=== PATIENT | female | born 1955 | race Two or more races ===

== ENCOUNTER 2018-05-18 18:04 | Emergency (ER) | payer MEDICAID ==
[~2018-05-18] VITALS: Ht 165.1 cm; Wt 76.3 kg
[~2018-05-18 18:04] MED LIST: ACET-812 PO; ACET1TAB12 PO; CYCL-1 PO; DIAZ2TAB PO; OMEP20CA10 PO; OXYC-145 PO; PREG50CA PO; [UNRECOGNIZED DRUG - CODE] TP
[2018-05-18 19:13] LABS: BASOPHILS # (AUTO) 0.1 X10'3 (0-0.2); BASOPHILS % (AUTO) 0.6 % (0-1); EOSINOPHILS # (AUTO) 0.3 X10'3 (0-0.9); HEMATOCRIT 40.6 % (35.0-45.0); HEMOGLOBIN 13.8 g/dl (12.0-16.0); LYMPHOCYTES # (AUTO) 2.1 X10'3 (1.1-4.8); LYMPHOCYTES % (AUTO) 23.5 % (21-51); MEAN CORPUSCULAR HEMOGLOBIN 30.6 PG (27.0-31.0); MEAN CORPUSCULAR VOLUME 89.9 FL (78-98); MEAN PLATELET VOLUME 7.9 FL (7.4-10.4); MONOCYTES # (AUTO) 0.6 X10'3 (0-0.9); MONOCYTES % (AUTO) 7.4 % (2-12); NEUTROPHILS # (AUTO) 5.7 X10'3 (1.8-7.7); NEUTROPHILS % (AUTO) 65.5 % (42-75); PLATELET COUNT 348 X10'3 (140-440); RED BLOOD COUNT 4.52 X10'6 (4.20-5.60); RED CELL DISTRIBUTION WIDTH 12.6 % (11.5-14.5); WHITE BLOOD COUNT 8.8 X10'3 (4.5-11.0)
[2018-05-18 19:27] LABS: ALANINE AMINOTRANSFERASE 52 U/L (12-78); ALBUMIN 3.5 G/DL (3.4-5.0); ALBUMIN/GLOBULIN RATIO 0.8 (1.1-1.5); ALKALINE PHOSPHATASE 120 IU/L (46-116); ANION GAP 10 (8-16); ASPARTATE AMINO TRANSFERASE 31 U/L (10-37); BILIRUBIN,TOTAL 0.4 MG/DL (0.1-1.0); BLOOD UREA NITROGEN 13 MG/DL (7-18); BUN/CREATININE RATIO 20.6 (6.6-38.0); CHLORIDE 103 MMOL/L (99-107); CREATININE 0.63 MG/DL (0.40-0.90); GLUCOSE 119 MG/DL (70-104); POTASSIUM 3.6 MMOL/L (3.5-5.1); SODIUM 140 MMOL/L (135-145); TOTAL CARBON DIOXIDE 26.8 MMOL/L (24-32); TOTAL PROTEIN 7.8 G/DL (6.4-8.2); eGFR > 90 ML/MIN
[2018-05-18 20:20] LABS: CLARITY,URINE CLEAR (Clear); COLOR,URINE STRAW (Yellow); GLUCOSE, URINE NEGATIVE (Neg); KETONES,URINE NEGATIVE (Neg); LEUKOCYTE ESTERASE ,URINE NEGATIVE (Neg); NITRITES, URINE NEGATIVE (Neg); OCCULT BLOOD,URINE SMALL (Neg); PROTEIN,URINE NEGATIVE (Neg); UROBILINOGEN,URINE 0.2 E.U/dL (0.2-1.0)
[2018-05-18 20:22] LABS: UA COLLECTION TYPE CLN CATCH MIDSTREAM
[2018-05-18 20:39] LABS: MUCUS STRANDS FEW /LPF (Neg); SQUAMOUS EPITHELIAL CELL,UR FEW /LPF (FEW)
[2018-05-18 20:40] LABS: BACTERIA,URINE NONE SEEN /HPF (Neg); RBC,URINE 0-2 /HPF (0-2); WBC,URINE NONE SEEN /HPF (0-4)
[2018-05-18 21:44] VITALS: BP 133/79
== END 2018-05-18 21:48 | disposition home or self-care (01) ==
LOC: ER 18:04
DX: N93.9 Abnormal uterine and vaginal bleeding, unspecified (principal); Z90.49 Acquired absence of other specified parts of digestive tract; Z56.0 Unemployment, unspecified; Z88.6 Allergy status to analgesic agent
CPT/HCPCS: 36415; 74176; 80053; 81001; 85025; 99285

== ENCOUNTER 2018-09-23 17:35 | Emergency (ER) | payer MEDICAID ==
[~2018-09-23] VITALS: Ht 154.9 cm; Wt 81.8 kg
[2018-09-23 18:14] VITALS: BP 135/47
[2018-09-23] MEDS ORDERED: HYDROcodone/acetaminophen 10/325mg tab PO ONE (18:20)
[2018-09-23] MEDS ORDERED: HYDR-4353 PO (19:38)
== END 2018-09-23 19:49 | disposition home or self-care (01) ==
LOC: ER 17:36
DX: S92.515A Nondisplaced fracture of proximal phalanx of left lesser toe(s), initial encounter for closed fracture (principal); Z85.3 Personal history of malignant neoplasm of breast; Z90.49 Acquired absence of other specified parts of digestive tract; Z98.890 Other specified postprocedural states; Z56.0 Unemployment, unspecified; Z88.5 Allergy status to narcotic agent; Z79.899 Other long term (current) drug therapy; W22.8XXA Striking against or struck by other objects, initial encounter; Y93.01 Activity, walking, marching and hiking; Y92.89 Other specified places as the place of occurrence of the external cause; Y99.8 Other external cause status
CPT/HCPCS: 73630; 99283

== ENCOUNTER 2019-02-08 20:41 | Emergency (ER) | payer MEDICAID ==
[~2019-02-08] VITALS: Ht 152.4 cm; Wt 86.0 kg
[~2019-02-08 20:41] MED LIST changes: -ACET-812 PO; -ACET1TAB12 PO; -CYCL-1 PO; -DIAZ2TAB PO; +IBUP-2417 PO; +LEVO88TA2 PO; -OMEP20CA10 PO; -OXYC-145 PO; -PREG50CA PO; -[UNRECOGNIZED DRUG - CODE] TP
[2019-02-08 21:25] LABS: BASOPHILS % (AUTO) 0.5 % (0-1); EOSINOPHILS # (AUTO) 0.2 X10'3 (0-0.9); EOSINOPHILS % (AUTO) 2.2 % (0-6); HEMATOCRIT 37.8 % (35.0-45.0); HEMOGLOBIN 13.1 g/dl (12.0-16.0); LYMPHOCYTES # (AUTO) 2.8 X10'3 (1.1-4.8); LYMPHOCYTES % (AUTO) 34.4 % (21-51); MEAN CORPUSCULAR HEMOGLOBIN 31.7 PG (27.0-31.0); MEAN CORPUSCULAR HGB CONC 34.6 g/dL (33.0-36.5); MEAN CORPUSCULAR VOLUME 91.7 FL (78-98); MEAN PLATELET VOLUME 7.7 FL (7.4-10.4); MONOCYTES # (AUTO) 0.6 X10'3 (0-0.9); NEUTROPHILS # (AUTO) 4.6 X10'3 (1.8-7.7); NEUTROPHILS % (AUTO) 55.9 % (42-75); PLATELET COUNT 273 X10'3 (140-440); RED BLOOD COUNT 4.13 X10'6 (4.20-5.60); RED CELL DISTRIBUTION WIDTH 12.8 % (11.5-14.5); WHITE BLOOD COUNT 8.3 X10'3 (4.5-11.0)
[2019-02-08 21:38] LABS: ALANINE AMINOTRANSFERASE 50 U/L (12-78); ALBUMIN 3.5 G/DL (3.4-5.0); ALBUMIN/GLOBULIN RATIO 0.9 (1.1-1.5); ALKALINE PHOSPHATASE 112 IU/L (46-116); ANION GAP 11 (8-16); ASPARTATE AMINO TRANSFERASE 24 U/L (10-37); BILIRUBIN,TOTAL 0.3 MG/DL (0.1-1.0); BLOOD UREA NITROGEN 15 MG/DL (7-18); BUN/CREATININE RATIO 18.1 (6.6-38.0); CALCIUM 8.6 MG/DL (8.5-10.1); CHLORIDE 108 MMOL/L (99-107); CREATININE 0.83 MG/DL (0.40-0.90); GLUCOSE 128 MG/DL (70-104); POTASSIUM 3.7 MMOL/L (3.5-5.1); SODIUM 143 MMOL/L (135-145); TOTAL CARBON DIOXIDE 24.3 MMOL/L (24-32); TOTAL PROTEIN 7.6 G/DL (6.4-8.2); eGFR 69 ML/MIN
[2019-02-08 21:41] LABS: PARTIAL THROMBOPLASTIN TIME 29 SECONDS (22-32)
[2019-02-08 22:39] LABS: CLARITY,URINE CLEAR (Clear); COLOR,URINE YELLOW (Yellow); GLUCOSE, URINE NEGATIVE (Neg); KETONES,URINE NEGATIVE (Neg); LEUKOCYTE ESTERASE ,URINE NEGATIVE (Neg); NITRITES, URINE NEGATIVE (Neg); OCCULT BLOOD,URINE TRACE-INTACT (Neg); PH,URINE 6.5 (4.8-8.0); PROTEIN,URINE NEGATIVE (Neg); UROBILINOGEN,URINE 0.2 E.U/dL (0.2-1.0)
[2019-02-08 22:40] LABS: UA COLLECTION TYPE CLN CATCH MIDSTREAM
[2019-02-08 22:45] LABS: BACTERIA,URINE FEW /HPF (Neg); MUCUS STRANDS NONE SEEN /LPF (Neg); RBC,URINE 0-2 /HPF (0-2); SQUAMOUS EPITHELIAL CELL,UR FEW /LPF (FEW); WBC,URINE NONE SEEN /HPF (0-4)
[2019-02-08 23:37] VITALS: BP 101/58
== END 2019-02-08 23:39 | disposition home or self-care (01) ==
LOC: ER 20:42
DX: R42 Dizziness and giddiness (principal); T37.8X5A Adverse effect of other specified systemic anti-infectives and antiparasitics, initial encounter; R10.12 Left upper quadrant pain; K11.7 Disturbances of salivary secretion; R07.89 Other chest pain; R10.13 Epigastric pain; K21.9 Gastro-esophageal reflux disease without esophagitis; Z85.3 Personal history of malignant neoplasm of breast; Z90.49 Acquired absence of other specified parts of digestive tract; Z98.890 Other specified postprocedural states; Z56.0 Unemployment, unspecified; Z88.5 Allergy status to narcotic agent; Z88.8 Allergy status to other drugs, medicaments and biological substances; Z79.899 Other long term (current) drug therapy; Y92.89 Other specified places as the place of occurrence of the external cause
CPT/HCPCS: 36415; 71045; 80053; 81001; 84484; 85025; 85610; 85730; 93005; 99284

== ENCOUNTER 2019-04-29 18:23 | Emergency (ER) | payer MEDICAID ==
[~2019-04-29] VITALS: Ht 152.4 cm; Wt 82.9 kg
--- NOTE | 2019-04-29 18:50 | NUR ---
TO CT WITH HUSSAIN AND SARAHI
[2019-04-29] MEDS ORDERED: SYN0.088T PO (18:53)
[2019-04-29] MEDS ORDERED: PANT-47 PO (18:53)
[2019-04-29 19:06] LABS: BASOPHILS # (AUTO) 0.1 X10'3 (0-0.2); BASOPHILS % (AUTO) 1.1 % (0-1); EOSINOPHILS # (AUTO) 0.2 X10'3 (0-0.9); EOSINOPHILS % (AUTO) 2.8 % (0-6); HEMATOCRIT 38.9 % (35.0-45.0); HEMOGLOBIN 13.2 g/dl (12.0-16.0); LYMPHOCYTES # (AUTO) 2.6 X10'3 (1.1-4.8); LYMPHOCYTES % (AUTO) 30.4 % (21-51); MEAN CORPUSCULAR HEMOGLOBIN 30.8 PG (27.0-31.0); MEAN CORPUSCULAR HGB CONC 33.9 g/dL (33.0-36.5); MEAN CORPUSCULAR VOLUME 90.8 FL (78-98); MEAN PLATELET VOLUME 8.1 FL (7.4-10.4); MONOCYTES # (AUTO) 0.7 X10'3 (0-0.9); MONOCYTES % (AUTO) 8.6 % (2-12); NEUTROPHILS # (AUTO) 4.9 X10'3 (1.8-7.7); NEUTROPHILS % (AUTO) 57.1 % (42-75); PLATELET COUNT 289 X10'3 (140-440); RED BLOOD COUNT 4.29 X10'6 (4.20-5.60); RED CELL DISTRIBUTION WIDTH 13.9 % (11.5-14.5); WHITE BLOOD COUNT 8.5 X10'3 (4.5-11.0)
[2019-04-29 19:21] LABS: PARTIAL THROMBOPLASTIN TIME 27 SECONDS (22-32)
[2019-04-29 19:26] LABS: ALANINE AMINOTRANSFERASE 55 U/L (12-78); ALBUMIN 3.6 G/DL (3.4-5.0); ALBUMIN/GLOBULIN RATIO 0.8 (1.1-1.5); ALKALINE PHOSPHATASE 102 IU/L (46-116); ANION GAP 9 (8-16); ASPARTATE AMINO TRANSFERASE 33 U/L (10-37); BILIRUBIN,TOTAL 0.3 MG/DL (0.1-1.0); BLOOD UREA NITROGEN 10 MG/DL (7-18); BUN/CREATININE RATIO 14.9 (6.6-38.0); CALCIUM 8.5 MG/DL (8.5-10.1); CHLORIDE 108 MMOL/L (99-107); CREATININE 0.67 MG/DL (0.40-0.90); GLUCOSE 118 MG/DL (70-104); POTASSIUM 3.9 MMOL/L (3.5-5.1); SODIUM 143 MMOL/L (135-145); TOTAL CARBON DIOXIDE 26.3 MMOL/L (24-32); TOTAL PROTEIN 8.3 G/DL (6.4-8.2); eGFR 89 ML/MIN
[2019-04-29 19:29] LABS: TROPONIN I < 0.04 NG/ML (0.0-0.05)
[2019-04-29] MEDS ORDERED: ketorolac trometh inj. 60 MG/2 ML VIAL IM ONE (19:40)
[2019-04-29 20:16] VITALS: BP 129/72
== END 2019-04-29 20:10 | disposition home or self-care (01) ==
LOC: ER 18:24
DX: R51 Headache (principal); R53.1 Weakness; K21.9 Gastro-esophageal reflux disease without esophagitis; Z56.0 Unemployment, unspecified; Z90.49 Acquired absence of other specified parts of digestive tract; Z85.3 Personal history of malignant neoplasm of breast; Z79.899 Other long term (current) drug therapy; Z88.5 Allergy status to narcotic agent
CPT/HCPCS: 36415; 70450; 71045; 80053; 82948; 84484; 85025; 85610; 85730; 93005; 96372; 99284; J1885

== ENCOUNTER 2020-06-12 15:29 | Emergency (ER) | payer MEDICAID ==
[~2020-06-12] VITALS: Ht 152.4 cm; Wt 86.9 kg
[~2020-06-12 15:29] MED LIST changes: -IBUP-2417 PO; -LEVO88TA2 PO; +PANT-47 PO; +SYN0.088T PO
[2020-06-12 15:40] VITALS: BP 154/69
[2020-06-12] MEDS ORDERED: normal saline 1000ML IV soln IVB ONE (16:30)
[2020-06-12] MEDS ORDERED: ondansetron/PF 4mg/2ml inj IV ONE (16:30)
[2020-06-12 16:50] LABS: BASOPHILS # (AUTO) 0.1 X10'3 (0-0.2); EOSINOPHILS # (AUTO) 0.2 X10'3 (0-0.9); EOSINOPHILS % (AUTO) 2.9 % (0-6); HEMATOCRIT 39.2 % (35.0-45.0); HEMOGLOBIN 13.6 g/dl (12.0-16.0); LYMPHOCYTES # (AUTO) 2.3 X10'3 (1.1-4.8); LYMPHOCYTES % (AUTO) 30.1 % (21-51); MEAN CORPUSCULAR HGB CONC 34.8 g/dL (33.0-36.5); MEAN PLATELET VOLUME 7.6 FL (7.4-10.4); MONOCYTES # (AUTO) 0.6 X10'3 (0-0.9); MONOCYTES % (AUTO) 7.2 % (2-12); NEUTROPHILS # (AUTO) 4.5 X10'3 (1.8-7.7); NEUTROPHILS % (AUTO) 58.8 % (42-75); PLATELET COUNT 335 X10'3 (140-440); RED BLOOD COUNT 4.26 X10'6 (4.20-5.60); RED CELL DISTRIBUTION WIDTH 12.9 % (11.5-14.5); WHITE BLOOD COUNT 7.7 X10'3 (4.5-11.0)
[2020-06-12 16:56] LABS: ALANINE AMINOTRANSFERASE 47 U/L (12-78); ALBUMIN 3.7 G/DL (3.4-5.0); ALBUMIN/GLOBULIN RATIO 0.8 (1.1-1.5); ALKALINE PHOSPHATASE 115 IU/L (46-116); ANION GAP 6 (8-16); ASPARTATE AMINO TRANSFERASE 23 U/L (10-37); BILIRUBIN,TOTAL 0.3 MG/DL (0.1-1.0); BLOOD UREA NITROGEN 12 MG/DL (7-18); CALCIUM 8.7 MG/DL (8.5-10.1); CHLORIDE 107 MMOL/L (99-107); GLUCOSE 122 MG/DL (70-104); LIPASE 109 U/L (73-393); POTASSIUM 3.8 MMOL/L (3.5-5.1); SODIUM 143 MMOL/L (135-145); TOTAL CARBON DIOXIDE 29.6 MMOL/L (24-32); TOTAL PROTEIN 8.2 G/DL (6.4-8.2); eGFR 56 ML/MIN
[2020-06-12] MEDS ORDERED: iohexol 300mg/ml 100ml inj. ONE (17:04)
[2020-06-12 17:09] LABS: CLARITY,URINE SLIGHTLY CLOUDY (Clear); COLOR,URINE STRAW (Yellow); GLUCOSE, URINE NEGATIVE (Neg); KETONES,URINE NEGATIVE (Neg); LEUKOCYTE ESTERASE ,URINE NEGATIVE (Neg); NITRITES, URINE NEGATIVE (Neg); OCCULT BLOOD,URINE TRACE-INTACT (Neg); PROTEIN,URINE NEGATIVE (Neg); UROBILINOGEN,URINE 0.2 E.U/dL (0.2-1.0)
[2020-06-12 17:40] LABS: UA COLLECTION TYPE NON-SPECIFIED
[2020-06-12 17:56] LABS: RBC,URINE 0-2 /HPF (0-2); WBC,URINE 0-4 /HPF (0-4)
[2020-06-12 17:57] LABS: BACTERIA,URINE FEW /HPF (Neg); SQUAMOUS EPITHELIAL CELL,UR MODERATE /LPF (FEW)
== END 2020-06-12 18:14 | disposition home or self-care (01) ==
LOC: ER 15:29
DX: R10.31 Right lower quadrant pain (principal); M70.61 Trochanteric bursitis, right hip; M54.89 Other dorsalgia; R30.0 Dysuria; R11.0 Nausea; R19.7 Diarrhea, unspecified; K21.9 Gastro-esophageal reflux disease without esophagitis; Z85.3 Personal history of malignant neoplasm of breast; Z98.890 Other specified postprocedural states; Z56.0 Unemployment, unspecified; Z88.1 Allergy status to other antibiotic agents; Z88.8 Allergy status to other drugs, medicaments and biological substances; Z79.899 Other long term (current) drug therapy; Y93.89 Activity, other specified
CPT/HCPCS: 36415; 71045; 74177; 80053; 81001; 83690; 85025; 96361; 96374; 99285; J2405; J7030; Q9967

== ENCOUNTER 2021-06-26 06:31 | Day surgery (SDC) | payer MEDICARE, MEDICAID ==
[~2021-06-26] VITALS: Ht 177.8 cm; Wt 84.7 kg
[2021-06-26] MEDS ORDERED: normal saline 1000ml 1,000 ML IV SCH (06:55)
[2021-06-26 07:04] VITALS: BP 127/57
[2021-06-26] MEDS ORDERED: PROC10TA10 PO (07:11)
[2021-06-26] MEDS ORDERED: PANT20TA18 PO (07:11)
[2021-06-26] MEDS ORDERED: LEVO25TA7 PO (07:11)
[2021-06-26] MEDS ORDERED: ONDA-104 PO (07:11)
[2021-06-26] MEDS ORDERED: DEXA4TAB PO (07:11)
[2021-06-26] MEDS ORDERED: fentaNYL/PF 50MCG/1 ML 2ML syringe ONE ×2 (07:57→09:22)
[2021-06-26] MEDS ORDERED: LIDOCAINE 1%/EPI 1:100,000 inj. 10 ML multi-dose vial ONE (07:57)
[2021-06-26] MEDS ORDERED: heparin sodium, porcine/PF 100unit/ml 5ML syringe ONE (07:57)
[2021-06-26] MEDS ORDERED: midazolam 1 mg/ML 2ml injection ONE ×2 (07:57→09:22)
[2021-06-26 09:56] VITALS: BP 108/57
[2021-06-26 10:10] VITALS: BP 109/57
[2021-06-26 10:26] VITALS: BP 114/54
== END 2021-06-26 10:40 | disposition home or self-care (01) ==
LOC: SSTAY O 06:31
PROVIDERS: ATTEND Preventive Medicine Aerospace Medicine
DX: C50.111 Malignant neoplasm of central portion of right female breast (principal); E04.1 Nontoxic single thyroid nodule
CPT/HCPCS: 36561; 76937; 77001; 99152; 99153; C1769; C1788; C1894; J1642; J2250; J3010; J3490; A9270

== ENCOUNTER 2021-08-30 21:53 | Inpatient (IN) | payer MEDICARE, MEDICAID ==
[~2021-08-30] VITALS: Ht 152.4 cm; Wt 85.2 kg
[~2021-08-30 21:53] MED LIST changes: +DEXA4TAB PO; +LEVO25TA7 PO; +ONDA-104 PO; -PANT-47 PO; +PANT20TA18 PO; +PROC10TA10 PO; -SYN0.088T PO
[2021-08-30 22:25] LABS: BASOPHILS # (AUTO) 0.3 X10'3 (0-0.2); BASOPHILS % (AUTO) 1.3 % (0-1); EOSINOPHILS % (AUTO) 0 % (0-6); HEMATOCRIT 35.4 % (35.0-45.0); HEMOGLOBIN 11.8 g/dl (12.0-16.0); LYMPHOCYTES # (AUTO) 0.4 X10'3 (1.1-4.8); LYMPHOCYTES % (AUTO) 1.7 % (21-51); MEAN CORPUSCULAR HEMOGLOBIN 30.7 PG (27.0-31.0); MEAN CORPUSCULAR HGB CONC 33.2 g/dL (33.0-36.5); MEAN CORPUSCULAR VOLUME 92.4 FL (78-98); MEAN PLATELET VOLUME 7.1 FL (7.4-10.4); MONOCYTES # (AUTO) 0.1 X10'3 (0-0.9); MONOCYTES % (AUTO) 0.4 % (2-12); NEUTROPHILS # (AUTO) 24.7 X10'3 (1.8-7.7); NEUTROPHILS % (AUTO) 96.6 % (42-75); PLATELET COUNT 314 X10'3 (140-440); RED BLOOD COUNT 3.83 X10'6 (4.20-5.60); RED CELL DISTRIBUTION WIDTH 16.5 % (11.5-14.5)
[2021-08-30 22:30] LABS: WHITE BLOOD COUNT 25.5 X10'3 (4.5-11.0)
[2021-08-30 22:40] LABS: ALANINE AMINOTRANSFERASE 26 U/L (12-78); ALBUMIN 3.2 G/DL (3.4-5.0); ALKALINE PHOSPHATASE 89 IU/L (46-116); ANION GAP 15 (8-16); ASPARTATE AMINO TRANSFERASE 18 U/L (10-37); BILIRUBIN,TOTAL 0.5 MG/DL (0.1-1.0); BLOOD UREA NITROGEN 14 MG/DL (7-18); BUN/CREATININE RATIO 20.6 (6.6-38.0); CHLORIDE 107 MMOL/L (99-107); CREATININE 0.68 MG/DL (0.40-0.90); GLUCOSE 158 MG/DL (70-104); LIPASE 188 U/L (73-393); POTASSIUM 3.2 MMOL/L (3.5-5.1); SODIUM 140 MMOL/L (135-145); TOTAL CARBON DIOXIDE 18.1 MMOL/L (24-32); TOTAL PROTEIN 6.5 G/DL (6.4-8.2); eGFR 87 ML/MIN
[2021-08-30 22:47] LABS: ANISOCYTOSIS 1+; PLATELET ESTIMATE NORMAL; TOTAL CELLS COUNTED 100
[2021-08-30 23:45] LABS: CLARITY,URINE CLOUDY (Clear); COLOR,URINE YELLOW (Yellow); GLUCOSE, URINE NEGATIVE (Neg); KETONES,URINE NEGATIVE (Neg); LEUKOCYTE ESTERASE ,URINE TRACE (Neg); NITRITES, URINE NEGATIVE (Neg); OCCULT BLOOD,URINE LARGE (Neg); PH,URINE 5.5 (4.8-8.0); PROTEIN,URINE 30 mg/dl (Neg); UROBILINOGEN,URINE 0.2 E.U/dL (0.2-1.0)
[2021-08-30 23:57] LABS: UA COLLECTION TYPE CLN CATCH MIDSTREAM
[2021-08-31] LABS: BACTERIA,URINE FEW /HPF (Neg); MUCUS STRANDS FEW /LPF (Neg); SQUAMOUS EPITHELIAL CELL,UR FEW /LPF (FEW); WBC,URINE 0-4 /HPF (0-4)
[2021-08-31] MEDS ORDERED: ondansetron/PF 4mg/2ml inj IV ONE (03:30)
[2021-08-31] MEDS ORDERED: normal saline 1000ML IV soln IVB ONE (05:35)
[2021-08-31] MEDS ORDERED: iohexol 300mg/ml 100ml inj. ONE (05:41)
[2021-08-31] MEDS ORDERED: CefTRIAXone/D5W-Rocephin 1gm 50 ML IV ONE (06:10)
[2021-08-31] MEDS ORDERED: azithromycin/NS 500mg/250ml 250 ML IV ONE (06:10)
[2021-08-31] MEDS ORDERED: ipratropium/albuterol 3ml nebule NEB PRN (07:55)
[2021-08-31] MEDS ORDERED: albuterol 2.5 MG/3 ML nebule NEB PRN (07:55)
[2021-08-31] MEDS ORDERED: ondansetron/PF 4mg/2ml inj IV PRN (07:55)
[2021-08-31] MEDS ORDERED: potassium Cl 20 mEq SR tablet PO PRN (07:55)
[2021-08-31] MEDS ORDERED: NS IV PRN (07:55)
[2021-08-31] MEDS ORDERED: MAGNESIUM IV PRN (07:55)
[2021-08-31] MEDS ORDERED: potassium CL 10mEq/100ml bag 100 ML IV PRN (07:55)
[2021-08-31] MEDS ORDERED: magnesium 4gm in 100ml NS 100 ML IV PRN (07:55)
[2021-08-31] MEDS ORDERED: acetaminophen 325mg tablet PO PRN ×2 (07:55)
[2021-08-31] MEDS ORDERED: HYDROmorphone inj. 0.5 MG/0.5 ML DISP.SYRIN IV PRN (07:55)
[2021-08-31] MEDS: docusate sod 100mg capsule PO SCH ×3 (08:00→21:13)
[2021-08-31] MEDS: K and/or MAG REPLACEMENT MC SCH ×2 (08:49→20:00)
[2021-08-31] MEDS: sodium bicarbonate (8.4%) inj. 100 MEQ in dextrose 5%-water 1,000 ML IV SCH ×2 (09:09→21:59)
[2021-08-31] MEDS: piperacillin/tazo 4.5gm/100ml 100 ML IV SCH ×2 (09:09→21:59)
--- NOTE | 2021-08-31 17:16 | NUR ---
pATIENT ADMITTED FROM ER ALERT AND ORIENTED X3. NO DISTRESS NOTED AT THIS TIME, DENIEDD PAIN
--- NOTE | 2021-08-31 18:26 | NUR ---
Problems reprioritized. Patient report given, questions answered & plan of care reviewed with PEÑA MCCLAIN.
--- NOTE | 2021-08-31 18:39 | NUR ---
Patient in room [facility]. I have received report from JESUS MCCLAIN and had the opportunity to ask questions and assume patient care. Addendum: 08/31/21 at 1839 by Lurdes Amaral RN Amended: Links added.
[2021-08-31 20:00] VITALS: BP 91/51
[2021-08-31] MEDS: enoxaparin 40mg/0.4ml syringe SQ SCH (21:14)
[2021-08-31] MEDS: potassium Cl 20 mEq SR tablet PO PRN (21:16)
[2021-09-01] VITALS: BP 101/61
[2021-09-01] MEDS: potassium Cl 20 mEq SR tablet PO PRN (04:40)
--- NOTE | 2021-09-01 04:55 | NUR ---
pt aawoke given another po potassium then up to brp. tolerated well and nasal swab done.
--- NOTE | 2021-09-01 06:21 | NUR ---
Problems reprioritized. Patient report given, questions answered & plan of care reviewed with SARAHI MONTOYA. Addendum: 09/01/21 at 0625 by Lurdes Amaral RN Amended: Links added.
[2021-09-01 07:00] VITALS: BP 98/57
[2021-09-01 07:05] LABS: BASOPHILS # (AUTO) 0.1 X10'3 (0-0.2); HEMOGLOBIN 9.9 g/dl (12.0-16.0); MONOCYTES # (AUTO) 0.1 X10'3 (0-0.9)
[2021-09-01 07:08] LABS: EOSINOPHILS % (AUTO) 0.3 % (0-6); HEMATOCRIT 29.2 % (35.0-45.0); LYMPHOCYTES # (AUTO) 0.4 X10'3 (1.1-4.8); LYMPHOCYTES % (AUTO) 3.3 % (21-51); MEAN CORPUSCULAR HEMOGLOBIN 31.8 PG (27.0-31.0); MEAN CORPUSCULAR HGB CONC 33.9 g/dL (33.0-36.5); MEAN CORPUSCULAR VOLUME 93.6 FL (78-98); MEAN PLATELET VOLUME 7.9 FL (7.4-10.4); MONOCYTES % (AUTO) 0.7 % (2-12); NEUTROPHILS % (AUTO) 94.7 % (42-75); PLATELET COUNT 165 X10'3 (140-440); RED BLOOD COUNT 3.12 X10'6 (4.20-5.60); RED CELL DISTRIBUTION WIDTH 16.2 % (11.5-14.5); WHITE BLOOD COUNT 11.7 X10'3 (4.5-11.0)
[2021-09-01] MEDS: sodium bicarbonate (8.4%) inj. 100 MEQ in dextrose 5%-water 1,000 ML IV SCH ×2 (07:24→22:01)
[2021-09-01] MEDS: piperacillin/tazo 4.5gm/100ml 100 ML IV SCH ×2 (07:24)
[2021-09-01] MEDS: pantoprazole 40mg Tablet.DR PO SCH (07:24)
[2021-09-01] MEDS: levoTHYROXINE 25mcg tablet PO SCH (07:24)
[2021-09-01] MEDS: docusate sod 100mg capsule PO SCH ×2 (07:34→20:00)
[2021-09-01 07:56] LABS: ALANINE AMINOTRANSFERASE 24 U/L (12-78); ALBUMIN 2.6 G/DL (3.4-5.0); ALBUMIN/GLOBULIN RATIO 0.9 (1.1-1.5); ALKALINE PHOSPHATASE 77 IU/L (46-116); ANION GAP 9 (8-16); ASPARTATE AMINO TRANSFERASE 13 U/L (10-37); BILIRUBIN,TOTAL 0.6 MG/DL (0.1-1.0); BLOOD UREA NITROGEN 8 MG/DL (7-18); BUN/CREATININE RATIO 14.8 (6.6-38.0); CALCIUM 7.9 MG/DL (8.5-10.1); CHLORIDE 106 MMOL/L (99-107); CHOL/HDL RATIO 3.3 (0.00-4.99); CHOLESTEROL 156 MG/DL (0-200); CREATININE 0.54 MG/DL (0.40-0.90); GLUCOSE 115 MG/DL (70-104); HDL CHOLESTEROL 47 MG/DL (35-60); LDL CHOLESTEROL 78 MG/DL (50-100); SODIUM 142 MMOL/L (135-145); TOTAL CARBON DIOXIDE 26.9 MMOL/L (24-32); TOTAL PROTEIN 5.5 G/DL (6.4-8.2); TRIGLYCERIDES 172 MG/DL (20-135); eGFR > 90 ML/MIN
[2021-09-01] MEDS: K and/or MAG REPLACEMENT MC SCH ×2 (08:00→20:00)
[2021-09-01 09:44] LABS: TOTAL CELLS COUNTED 100
[2021-09-01 09:45] LABS: ANISOCYTOSIS 1+; PLATELET ESTIMATE NORMAL
[2021-09-01 11:00] VITALS: BP 95/65
[2021-09-01] MEDS: meropenem inj 1 GM in normal saline 100ml IV soln 100 ML IV SCH ×2 (13:01→16:57)
[2021-09-01] MEDS: metroNIDAZOLE-Flagyl 500mg/NS 100 ML IV SCH (16:57)
--- NOTE | 2021-09-01 18:10 | NUR ---
Patient in room [facility]. I have received report from SARAHI MONTOYA and had the opportunity to ask questions and assume patient care. Addendum: 09/01/21 at 1811 by Lurdes Amaral RN Amended: Links added.
--- NOTE | 2021-09-01 19:10 | NUR ---
Patient in room [facility]. I have received report from SARAHI Prater and had the opportunity to ask questions and assume patient care.
[2021-09-01 20:00] VITALS: BP 104/49
[2021-09-01] MEDS: enoxaparin 40mg/0.4ml syringe SQ SCH (22:03)
[2021-09-02] VITALS: BP 99/57
[2021-09-02] MEDS: meropenem inj 1 GM in normal saline 100ml IV soln 100 ML IV SCH ×3 (00:32→15:07)
[2021-09-02] MEDS: metroNIDAZOLE-Flagyl 500mg/NS 100 ML IV SCH ×2 (00:32→08:48)
[2021-09-02] MEDS: sodium bicarbonate (8.4%) inj. 100 MEQ in dextrose 5%-water 1,000 ML IV SCH ×2 (03:55→14:06)
--- NOTE | 2021-09-02 05:40 | NUR ---
Student documentation: I have reviewed and agree with all interventions, assessments performed and documented by LINDSAY GRIMM RN STUDENT. Addendum: 09/02/21 at 0541 by Lurdes Amaral RN Amended: Links added.
[2021-09-02 06:20] LABS: BASOPHILS # (AUTO) 0.1 X10'3 (0-0.2); EOSINOPHILS # (AUTO) 0.1 X10'3 (0-0.9); HEMOGLOBIN 10.2 g/dl (12.0-16.0); LYMPHOCYTES # (AUTO) 0.5 X10'3 (1.1-4.8); MEAN CORPUSCULAR HGB CONC 33.9 g/dL (33.0-36.5); MONOCYTES # (AUTO) 0.1 X10'3 (0-0.9); RED BLOOD COUNT 3.19 X10'6 (4.20-5.60); WHITE BLOOD COUNT 5.6 X10'3 (4.5-11.0)
[2021-09-02 06:22] LABS: BASOPHILS % (AUTO) 1.4 % (0-1); EOSINOPHILS % (AUTO) 1.5 % (0-6); HEMATOCRIT 29.9 % (35.0-45.0); LYMPHOCYTES % (AUTO) 9.2 % (21-51); MEAN CORPUSCULAR HEMOGLOBIN 31.8 PG (27.0-31.0); MEAN CORPUSCULAR VOLUME 93.7 FL (78-98); MONOCYTES % (AUTO) 1.4 % (2-12); NEUTROPHILS # (AUTO) 4.8 X10'3 (1.8-7.7); NEUTROPHILS % (AUTO) 86.5 % (42-75); PLATELET COUNT 152 X10'3 (140-440); RED CELL DISTRIBUTION WIDTH 16.4 % (11.5-14.5)
[2021-09-02 06:44] LABS: ALANINE AMINOTRANSFERASE 24 U/L (12-78); ALBUMIN 2.6 G/DL (3.4-5.0); ALBUMIN/GLOBULIN RATIO 0.9 (1.1-1.5); ALKALINE PHOSPHATASE 85 IU/L (46-116); ANION GAP 8 (8-16); ASPARTATE AMINO TRANSFERASE 12 U/L (10-37); BILIRUBIN,TOTAL 0.4 MG/DL (0.1-1.0); BLOOD UREA NITROGEN 8 MG/DL (7-18); CALCIUM 7.9 MG/DL (8.5-10.1); CHLORIDE 107 MMOL/L (99-107); GLUCOSE 104 MG/DL (70-104); MAGNESIUM 1.8 MG/DL (1.5-2.4); SODIUM 143 MMOL/L (135-145); TOTAL CARBON DIOXIDE 28.3 MMOL/L (24-32); TOTAL PROTEIN 5.5 G/DL (6.4-8.2); eGFR > 90 ML/MIN
--- NOTE | 2021-09-02 06:48 | NUR ---
Problems reprioritized. Patient report given, questions answered & plan of care reviewed with SARAHI HALE. Addendum: 09/02/21 at 0650 by Lurdes Amaral RN Amended: Links added.
--- NOTE | 2021-09-02 06:52 | NUR ---
Problems reprioritized. Patient report given, questions answered & plan of care reviewed with SARAHI Marti.
[2021-09-02 07:00] VITALS: BP 103/52
[2021-09-02] MEDS: pantoprazole 40mg Tablet.DR PO SCH (08:49)
[2021-09-02] MEDS: levoTHYROXINE 25mcg tablet PO SCH (08:49)
[2021-09-02] MEDS: docusate sod 100mg capsule PO SCH ×2 (08:49→20:00)
[2021-09-02] MEDS: K and/or MAG REPLACEMENT MC SCH ×2 (08:50→20:00)
[2021-09-02 10:12] LABS: ANISOCYTOSIS 1+; PLATELET ESTIMATE NORMAL; TOTAL CELLS COUNTED 100
[2021-09-02 10:13] LABS: HYPOCHROMASIA 1+
[2021-09-02 11:00] VITALS: BP 102/61
--- NOTE | 2021-09-02 17:47 | NUR ---
PATIENT IN 3040,JACKIE SCOTT. CO2 28.3. BUN 8, WOULD YOU LIKE TO D/C THE IV SODIUM BICAB. (92 character message out of a maximum of 240)
[2021-09-02] MEDS ORDERED: normal saline 1000ml 1,000 ML IV SCH (17:55)
--- NOTE | 2021-09-02 18:26 | NUR ---
Patient in room [facility]. I have received report from SARAHI HALE and had the opportunity to ask questions and assume patient care. Addendum: 09/02/21 at 1826 by Lurdes Amaral RN Amended: Links added.
[2021-09-02 20:00] VITALS: BP 110/53
[2021-09-02] MEDS: enoxaparin 40mg/0.4ml syringe SQ SCH (20:28)
[2021-09-03] VITALS: BP 92/52
[2021-09-03] MEDS: meropenem inj 1 GM in normal saline 100ml IV soln 100 ML IV SCH ×2 (00:18→09:28)
--- NOTE | 2021-09-03 06:36 | NUR ---
Problems reprioritized. Patient report given, questions answered & plan of care reviewed with SARAHI TAYLOR. Addendum: 09/03/21 at 0640 by Lurdes Amaral RN Amended: Links added.
[2021-09-03] MEDS: docusate sod 100mg capsule PO SCH (06:48)
[2021-09-03 07:00] VITALS: BP 114/62
[2021-09-03 07:02] LABS: HEMATOCRIT 31.1 % (35.0-45.0); LYMPHOCYTES # (AUTO) 0.5 X10'3 (1.1-4.8); MONOCYTES # (AUTO) 0.3 X10'3 (0-0.9); WHITE BLOOD COUNT 2.6 X10'3 (4.5-11.0)
[2021-09-03 07:08] LABS: BASOPHILS % (AUTO) 1.2 % (0-1); EOSINOPHILS % (AUTO) 1.9 % (0-6); HEMOGLOBIN 10.5 g/dl (12.0-16.0); LYMPHOCYTES % (AUTO) 17.2 % (21-51); MEAN CORPUSCULAR HEMOGLOBIN 31.8 PG (27.0-31.0); MEAN CORPUSCULAR HGB CONC 33.8 g/dL (33.0-36.5); MEAN CORPUSCULAR VOLUME 94.3 FL (78-98); MEAN PLATELET VOLUME 7.4 FL (7.4-10.4); MONOCYTES % (AUTO) 11.9 % (2-12); NEUTROPHILS # (AUTO) 1.8 X10'3 (1.8-7.7); NEUTROPHILS % (AUTO) 67.8 % (42-75); PLATELET COUNT 170 X10'3 (140-440)
[2021-09-03 07:44] LABS: ALANINE AMINOTRANSFERASE 25 U/L (12-78); ALBUMIN 2.9 G/DL (3.4-5.0); ALBUMIN/GLOBULIN RATIO 0.9 (1.1-1.5); ALKALINE PHOSPHATASE 97 IU/L (46-116); ANION GAP 11 (8-16); ASPARTATE AMINO TRANSFERASE 14 U/L (10-37); BILIRUBIN,TOTAL 0.5 MG/DL (0.1-1.0); BLOOD UREA NITROGEN 10 MG/DL (7-18); BUN/CREATININE RATIO 18.9 (6.6-38.0); CALCIUM 8.3 MG/DL (8.5-10.1); CHLORIDE 107 MMOL/L (99-107); CREATININE 0.53 MG/DL (0.40-0.90); GLUCOSE 98 MG/DL (70-104); POTASSIUM 4.4 MMOL/L (3.5-5.1); SODIUM 143 MMOL/L (135-145); TOTAL CARBON DIOXIDE 25.4 MMOL/L (24-32); TOTAL PROTEIN 6.1 G/DL (6.4-8.2); eGFR > 90 ML/MIN
[2021-09-03] MEDS: K and/or MAG REPLACEMENT MC SCH (08:00)
[2021-09-03 09:23] LABS: TOTAL CELLS COUNTED 100
[2021-09-03 09:24] LABS: ANISOCYTOSIS 1+; PLATELET ESTIMATE NORMAL
[2021-09-03] MEDS: pantoprazole 40mg Tablet.DR PO SCH (09:28)
[2021-09-03] MEDS: levoTHYROXINE 25mcg tablet PO SCH (09:28)
[2021-09-03] MEDS ORDERED: AZIT500T9 PO (10:37)
[2021-09-03] MEDS ORDERED: METR-159 PO (10:37)
[2021-09-03 11:00] VITALS: BP 91/41
--- NOTE | 2021-09-03 14:54 | NUR ---
PT DISCHARGED IN STABLE CONDITION. LEFT FACILITY IN PRIVATE VEHICLE WITH SON. IV DC [facility] INTACT. FOLLOW UP INSTRUCTIONS GIVEN, ALL QUESTIONS ANSWERED. FAMILY WAS AT BEDSIDE TO TRANSLATE INFO. Addendum: 09/03/21 at 1455 by Helena Hernandez RN Amended: Links added.
== END 2021-09-03 14:36 | disposition home health service (06) | DRG 871 ==
LOC: ER 21:54 → ED HOLD 08-31 08:02 → EDBEDREQ 08-31 15:57 → SUR 3N 08-31 16:32
PROVIDERS: ADMIT Family Medicine; ATTEND Family Medicine
PROC: BW211ZZ Computerized Tomography (CT Scan) of Abdomen and Pelvis using Low Osmolar Contrast (ICD-10-PCS; principal; 2021-08-31)
DX: A41.51 Sepsis due to Escherichia coli [E. coli] (principal); J18.9 Pneumonia, unspecified organism; K57.32 Diverticulitis of large intestine without perforation or abscess without bleeding; N39.0 Urinary tract infection, site not specified; Z16.30 Resistance to unspecified antimicrobial drugs; E87.2 Acidosis; G47.33 Obstructive sleep apnea (adult) (pediatric); E87.6 Hypokalemia; K21.9 Gastro-esophageal reflux disease without esophagitis; C73 Malignant neoplasm of thyroid gland; Z20.822 Contact with and (suspected) exposure to COVID-19; T45.8X5A Adverse effect of other primarily systemic and hematological agents, initial encounter; D72.828 Other elevated white blood cell count; Y92.89 Other specified places as the place of occurrence of the external cause; Z86.16 Personal history of COVID-19; Z92.21 Personal history of antineoplastic chemotherapy; Z88.1 Allergy status to other antibiotic agents; Z88.6 Allergy status to analgesic agent; Z79.899 Other long term (current) drug therapy; Z90.49 Acquired absence of other specified parts of digestive tract; Z90.710 Acquired absence of both cervix and uterus; Z90.79 Acquired absence of other genital organ(s); Z90.722 Acquired absence of ovaries, bilateral; C50.911 Malignant neoplasm of unspecified site of right female breast; C50.912 Malignant neoplasm of unspecified site of left female breast
CPT/HCPCS: 36415; 71045; 74177; 80053; 80061; 81001; 81003; 83605; 83690; 83735; 84145; 85007; 85025; 87040; 87077; 87081; 87088; 87186; 87635; 93005; 94760; 96365; 96368; 96375; 97116; 97161; 97530; 99285; C9803; G0378; J0456; J0696; J1650; J2185; J2405; J2543; J3480; J3490; J7030; J7070; Q9967

== ENCOUNTER 2022-08-26 13:01 | Emergency (ER) | payer MEDICARE, MEDICAID ==
[~2022-08-26] VITALS: Ht 152.4 cm; Wt 80.0 kg
[~2022-08-26 13:01] MED LIST changes: +AZIT500T9 PO; -DEXA4TAB PO; -ONDA-104 PO; -PROC10TA10 PO
--- NOTE | 2022-08-26 17:01 | NUR ---
Patient is a croatian speaker. She has a family member in department to translate.
[2022-08-26] MEDS ORDERED: ondansetron/PF 4mg/2ml inj IV ONE (17:05)
[2022-08-26] MEDS ORDERED: morphine 4 MG/ML inj SYRINge IV PRN (17:05)
[2022-08-26 17:55] LABS: BASOPHILS % (AUTO) 0.3 % (0-1); EOSINOPHILS # (AUTO) 0.2 X10'3 (0-0.9); EOSINOPHILS % (AUTO) 2.2 % (0-6); HEMATOCRIT 39.8 % (35.0-45.0); HEMOGLOBIN 13.5 g/dl (12.0-16.0); LYMPHOCYTES % (AUTO) 14.8 % (21-51); MEAN CORPUSCULAR HEMOGLOBIN 35.5 PG (27.0-31.0); MEAN CORPUSCULAR HGB CONC 33.9 g/dL (33.0-36.5); MEAN CORPUSCULAR VOLUME 104.8 FL (78-98); MEAN PLATELET VOLUME 6.9 FL (7.4-10.4); MONOCYTES # (AUTO) 0.6 X10'3 (0-0.9); MONOCYTES % (AUTO) 8.3 % (2-12); NEUTROPHILS # (AUTO) 5.3 X10'3 (1.8-7.7); NEUTROPHILS % (AUTO) 74.4 % (42-75); PLATELET COUNT 231 X10'3 (140-440); RED CELL DISTRIBUTION WIDTH 16.9 % (11.5-14.5); WHITE BLOOD COUNT 7.1 X10'3 (4.5-11.0)
[2022-08-26 18:03] LABS: ALANINE AMINOTRANSFERASE 29 U/L (12-78); ALBUMIN 4.1 G/DL (3.4-5.0); ALKALINE PHOSPHATASE 131 IU/L (46-116); ANION GAP 13 (8-16); ASPARTATE AMINO TRANSFERASE 25 U/L (10-37); BILIRUBIN,TOTAL 0.8 MG/DL (0.1-1.0); BLOOD UREA NITROGEN 15 MG/DL (7-18); CALCIUM 9.8 MG/DL (8.5-10.1); CHLORIDE 105 MMOL/L (99-107); GLUCOSE 84 MG/DL (70-104); LIPASE 96 U/L (73-393); POTASSIUM 3.8 MMOL/L (3.5-5.1); SODIUM 142 MMOL/L (135-145); TOTAL CARBON DIOXIDE 23.6 MMOL/L (24-32); TOTAL PROTEIN 8.4 G/DL (6.4-8.2); eGFR > 90 ML/MIN
--- NOTE | 2022-08-26 18:25 | NUR ---
Patient endorsed to Angelia MCCLAIN.
[2022-08-26 18:29] VITALS: BP 116/64
[2022-08-26 18:34] LABS: CLARITY,URINE CLEAR (Clear); COLOR,URINE YELLOW (Yellow); GLUCOSE, URINE NEGATIVE (Neg); KETONES,URINE NEGATIVE (Neg); LEUKOCYTE ESTERASE ,URINE NEGATIVE (Neg); NITRITES, URINE NEGATIVE (Neg); OCCULT BLOOD,URINE TRACE-INTACT (Neg); PROTEIN,URINE NEGATIVE (Neg); UROBILINOGEN,URINE 0.2 E.U/dL (0.2-1.0)
[2022-08-26 18:49] LABS: UA COLLECTION TYPE CLN CATCH MIDSTREAM
[2022-08-26 18:52] LABS: BACTERIA,URINE FEW /HPF (Neg); RBC,URINE 0-2 /HPF (0-2); WBC,URINE 0-4 /HPF (0-4)
[2022-08-26 18:53] LABS: CAL OXALATE CRYSTALS 3+ /HPF (NEGATIVE); SQUAMOUS EPITHELIAL CELL,UR NONE SEEN /LPF (FEW)
[2022-08-26] MEDS ORDERED: HYDR-3964 PO (18:58)
== END 2022-08-26 19:22 | disposition home or self-care (01) ==
LOC: ER 13:02
DX: M54.50 Low back pain, unspecified (principal); R10.31 Right lower quadrant pain; K21.9 Gastro-esophageal reflux disease without esophagitis; E03.9 Hypothyroidism, unspecified; Z90.49 Acquired absence of other specified parts of digestive tract; Z56.0 Unemployment, unspecified; Z98.890 Other specified postprocedural states; Z88.5 Allergy status to narcotic agent; Z79.899 Other long term (current) drug therapy
CPT/HCPCS: 36415; 74176; 80053; 81001; 83690; 85025; 96374; 96375; 99285; J2270; J2405

== ENCOUNTER 2022-10-10 07:45 | Day surgery (SDC) | payer MEDICARE, MEDICAID ==
[2022-10-10] VITALS (8 sets, daily range): BP systolic 121–135; BP diastolic 62–86
[~2022-10-10] VITALS: Ht 157.5 cm; Wt 79.7 kg
[2022-10-10] MEDS ORDERED: albumin 25% 100mL bottle x 1 IV PRN (08:10)
[2022-10-10] MEDS ORDERED: LIDOcaine 1% 30ml preserv. free vial SQ STA (08:10)
[2022-10-10] MEDS ORDERED: ANAS1TAB49 PO (08:14)
== END 2022-10-10 11:00 | disposition home or self-care (01) ==
LOC: SSTAY O 07:45
PROVIDERS: ATTEND Radiology Vascular & Interventional Radiology
DX: J90 Pleural effusion, not elsewhere classified (principal); G47.33 Obstructive sleep apnea (adult) (pediatric); K21.9 Gastro-esophageal reflux disease without esophagitis; Z90.49 Acquired absence of other specified parts of digestive tract; Z98.890 Other specified postprocedural states; Z85.3 Personal history of malignant neoplasm of breast; Z85.850 Personal history of malignant neoplasm of thyroid; Z79.899 Other long term (current) drug therapy
CPT/HCPCS: 32555; C1729; J3490; 88108; 88305; 88341; 88342